=== PATIENT | male | born 1945 | race Caucasian/White ===

== ENCOUNTER → 2021-11-19 | Outpatient (CLI) | payer MEDICARE, OTHER | LOC: HEART 5 11-12 08:15 | DX: I49.3 Ventricular premature depolarization (principal); R07.9 Chest pain, unspecified; R00.2 Palpitations; I27.20 Pulmonary hypertension, unspecified; I37.1 Nonrheumatic pulmonary valve insufficiency | CPT/HCPCS: 78452; 93306; A9502 ==

== ENCOUNTER → 2021-12-09 | Outpatient (CLI) | payer MEDICARE, OTHER ==
[~2021-12-09] MED LIST: BAYER CHEWABLE81 MG PO; COREG 3.125M3.125 MG PO; IMDUR PO; OMEPRAZOLE20 MG PO; PROBIOTIC1 EAC1 PO; PROSCAR 5 MG TAB5 MG PO; VITAMIN D21250 MCG PO; ZESTRIL20 MG PO; ZETIA10 MG PO
[2021-12-09 10:23] LABS: HEMOGLOBIN 14.1 gm/dl (14.0-17.5); RED BLOOD COUNT 4.58 M/UL (4.20-5.50); WHITE BLOOD COUNT 4.8 K/UL (4.5-11.0)
[2021-12-09 10:42] LABS: BUN/CREATININE RATIO 23 (0-10)
== END ==
LOC: LAB 09:34
PROVIDERS: Internal Medicine Cardiovascular Disease
DX: R94.39 Abnormal result of other cardiovascular function study (principal); I20.9 Angina pectoris, unspecified; I42.9 Cardiomyopathy, unspecified; I47.2 Ventricular tachycardia
CPT/HCPCS: 36415; 71046; 80048; 85025

== ENCOUNTER → 2021-12-11 | Outpatient (CLI) | payer MEDICARE, OTHER | LOC: CATH 07:55 | DX: I25.118 Atherosclerotic heart disease of native coronary artery with other forms of angina pectoris (principal); I47.2 Ventricular tachycardia; I10 Essential (primary) hypertension; E78.5 Hyperlipidemia, unspecified; I42.9 Cardiomyopathy, unspecified; Z20.822 Contact with and (suspected) exposure to COVID-19 | CPT/HCPCS: 93005; 99152; 99153; C1769; C1894; J1644; J2250; J3010; J7030; Q9967 ==

== ENCOUNTER → 2022-02-25 | Outpatient (CLI) | payer MEDICARE, OTHER | LOC: HEART 5 15:15 | DX: I48.91 Unspecified atrial fibrillation (principal); R00.2 Palpitations; I47.2 Ventricular tachycardia ==

== ENCOUNTER → 2022-03-05 | Outpatient (CLI) | payer MEDICARE, OTHER | LOC: HEART 5 08:49 | DX: R06.02 Shortness of breath (principal); Z79.899 Other long term (current) drug therapy | CPT/HCPCS: 94010; 94729 ==

== ENCOUNTER → 2022-05-19 | Outpatient (CLI) | payer MEDICARE, OTHER | LOC: HEART 5 10:13 | DX: I48.91 Unspecified atrial fibrillation (principal); I10 Essential (primary) hypertension; R00.2 Palpitations; R06.02 Shortness of breath; Z79.899 Other long term (current) drug therapy ==